=== PATIENT | male | born 1980 | race Asian ===

== ENCOUNTER 2022-11-04 18:49 | Emergency (ER) | payer OTHER, SELFPAY ==
[2022-11-04 19:02] VITALS: BP 119/79; PULSE 80; RESP 14; TEMP 36.7; O2SAT 100
--- NOTE | 2022-11-04 19:15 | DI.RAD_ITS ---
Exam(s) XR FINGER RT MIDDLE EXAM: XR FINGER RT MIDDLE CLINICAL HISTORY: trauma distal. TECHNIQUE: 2D digital imaging was performed. Three views. COMPARISON: No exams were available for comparison FINDINGS: BONES: Comminuted displaced fracture of the tuft of the distal phalanx of the middle finger. Overlyi ng soft tissue wound. No additional fractures. No bony destructive lesion is seen. JOINTS: No dislocation present. IMPRESSION: Comminuted tuft fracture. DATA REPOSITORY: RADIATION DOSE DELIVERED:
[2022-11-04] MEDS: Tetanus & Diphtheria Tox,ADULT 0.5 ML VIAL IM (19:44)
--- NOTE | 2022-11-04 20:17 | DI.VRAD_ITS ---
PROCEDURE INFORMATION: Exam: XR Right Finger(s) Exam date and time: 11/04/2022 7:33 PM Age: 42 years old Clinical indication: Pain; Finger(s); Right; Patient HX: Trauma to distal RT middle finger TECHNIQUE: Imaging protocol: Radiologic exam of the right fingers. Views: Minimum 2 views. COMPARISON: No relevant prior studies available. FINDINGS: Bones/joints: There is a fracture of the tip of the 3rd distal phalanx with a few small displaced fragments. No other fracture evident. Osseous alignment otherwise normal. No arthritic change. Soft tissues: Soft tissue injury of the distal 3rd finger noted. IMPRESSION: Fracture of the tip of the 3rd distal phalanx Dictated and Authenticated by: Franklyn Osborn MD. Ordering:GRETA Francis MD
--- NOTE | 2022-11-04 21:02 | W.ED.GENAD ---
Discharge Plan Disposition Patient Disposition: Home Discharge Details Clinical Impression: Open fracture of tuft of distal phalanx of finger Primary Care Provider: None,None ED Provider: Penny Slater Home Meds and New Rx's Prescriptions: New cephalexin 500 mg capsule 500 mg PO Q6H 7 Days Qty: 28 0RF cephalexin 500 mg capsule 500 mg PO Q6H 7 Days Qty: 28 0RF Discharge Instructions Instructions: Finger Fracture (ED) Additional Instructions: Keep your finger dry, do not submerge in water Take ibuprofen and Tylenol, ibuprofen 600 mg every 8 hours with food, Tylenol 650 every 4 hours Take the antibiotic as prescribed Yogurt daily while on the antibiotic, you have an open finger fracture, it is very important that you follow-up with orthopedics, they should call you tomorrow if you do not hear from them by the end of the day, I recommend calling to set up an appointment To develop fever, chills, worsening pain, please return to the emergency department The lidocaine will likely wear off an hour and a half so I would start taking some ibuprofen and Tylenol when you arrive home I supplied you with oxycodone, 4 tablets, you may take this every 8 hours as needed for pain, this is addictive and you should not drive for 8 hours after taking this medication such as use caution The dressing should be changed every 48 hours Referrals: Jeremy Kate MD [ [facility] STAFF PHYSICIAN] - Medical Decision Making 42-year-old gentleman presents with injury to right third digit just prior to arrival Large laceration, concern for tuft fracture, x-ray was ordered for further evaluation with distal tuft fracture appreciated, large area of tissue avulsed, nail pulled away from fold, Keflex initiated, nail was placed black in the fold and sutured in place, attempt made to cover area of avulsion with skin, will need close outpatient orthopedic follow-up Tetanus updated Small amount of oxycodone, risk of addiction reviewed Referral to orthopedics Return precautions reviewed and patient expressed understanding Medical Records Medical records reviewed: Yes I reviewed the patient's medical records. Lab Data Lab results reviewed: Yes I reviewed the patient's lab results. HPI General Date/Time Provider Initiated Documentation: 11/04/22 19:10. HPI Narrative: This otherwise healthy 42-year-old gentleman presents with report of injury to third digit, he states the weight, 75 pounds rolled over on his finger. He denies any additional injuries, unsure regarding his tetanus. This event occurred just prior to arrival. Related Data Home Medications Medication Instructions Recorded Confirmed cephalexin 500 mg capsule 500 mg PO Q6H 7 days #28 caps 11/04/22 cephalexin 500 mg capsule 500 mg PO Q6H 7 days #28 caps 11/04/22 Previous Rx's Medication Instructions Recorded cephalexin 500 mg capsule 500 mg PO Q6H 7 days #28 caps 11/04/22 cephalexin 500 mg capsule 500 mg PO Q6H 7 days #28 caps 11/04/22 General Stated Complaint: Laceration LEVAR: 4 PFSH All Active Problems (Updated 11/04/22 @ 20:42 by LORY Casillas) Open fracture of tuft of distal phalanx of finger (Acute) Social History Smoking/Tobacco Use Status: Never Smoking risk assessment performed?: Yes Alcohol Intake: never Drug use: Never Substance use type: does not use Do you feel safe at home: Yes Do you feel safe in your relationship?: Yes Course Vital Signs Vital signs: Vital Signs Temperature 36.7 C 11/04/22 19:02 Pulse 80 11/04/22 19:02 Respiratory Rate 14 11/04/22 19:02 Blood Pressure 119/79 11/04/22 19:02 Pulse Oximetry 100 11/04/22 19:02 Temperature 36.7 C 11/04/22 19:02 Temperature Source Skin 11/04/22 19:02 Pulse 80 11/04/22 19:02 Respiratory Rate 14 11/04/22 19:02 Respiratory Effort Normal, Non-Labored 11/04/22 19:46 Blood Pressure 119/79 11/04/22 19:02 Blood Pressure Position Sitting 11/04/22 19:02 Pulse Oximetry 100 11/04/22 19:02 Oxygen Delivery Method Room Air 11/04/22 19:02 Oxygen Flow Rate 0 11/04/22 19:02 Pain Level 2 11/04/22 19:02 Procedures Laceration Laceration 1: Site: hand Side (If applicable): right Size (cm): 2.5 Description: irregular and other (involves nail, nail placed back into nail fold and sutured with 2 interrupted 5-0 chromic ) Local Anesthetic: Lidocaine 1% Amount of anesthesia used (mL): 3 Skin layer closed with: other (prolene) Size (cm): 5-0 Number of sutures: 3 Technique: simple, interrupted
== END 2022-11-04 21:08 | disposition home or self-care (01) ==
PROVIDERS: Emergency Provider Physician Assistant
DX: S62.632B Displaced fracture of distal phalanx of right middle finger, initial encounter for open fracture (principal); X58.XXXA Exposure to other specified factors, initial encounter
CPT/HCPCS: 12001; 90471; 99284; 73140

== ENCOUNTER 2023-12-21 19:53 | Outpatient (CLI) | payer OTHER, SELFPAY ==
[2023-12-21 20:46] LABS: Hemoglobin A1C 5.7 % (<5.7)
[2023-12-21 20:48] LABS: Anion Gap 13.6 mmol/L (3-11); BUN 9 mg/dL (7-18); CO2 27.4 mmol/L (21.0-32.0); CREATININE 1.2 mg/dL (0.70-1.30); Calculated LDL 95 mg/dL (<100); Chloride 104 mmol/L (98-107); Cholesterol 196 mg/dL (<200); Estimated GFR 77.43 (mL/min/1.73m2); Glucose 96 mg/dL (74-106); HDL Cholesterol 40 mg/dL (40-60); Potassium 3.9 mmol/L (3.5-5.1); Sodium 145 mmol/L (136-145); Triglyceride 307 mg/dL (<150)
[2023-12-22 18:17] LABS: PSA, Screening 0.6 ng/mL (<=2.5)
== END 2023-12-21 19:54 | disposition home or self-care (01) ==
PROVIDERS: PCP Nurse Practitioner Family; Visit Provider Nurse Practitioner Family
DX: Z00.00 Encounter for general adult medical examination without abnormal findings (principal); Z80.42 Family history of malignant neoplasm of prostate; R79.89 Other specified abnormal findings of blood chemistry
CPT/HCPCS: 80048; 80061; 84153; 83036

== ENCOUNTER 2024-04-04 04:20 | Outpatient (CLI) | payer OTHER, SELFPAY ==
[2024-04-04 20:37] LABS: ALT 50 U/L (16-63); AST 23 U/L (15-37); Alkaline Phosphatase 95 U/L (46-116); Anion Gap 8.3 mmol/L (3-11); BUN 18 mg/dL (7-18); CO2 30.7 mmol/L (21.0-32.0); CREATININE 1.3 mg/dL (0.70-1.30); Calcium 9.1 mg/dL (8.5-10.1); Chloride 103 mmol/L (98-107); Estimated GFR 70.34 (mL/min/1.73m2); Glucose 93 mg/dL (74-106); Potassium 4.6 mmol/L (3.5-5.1); Sodium 142 mmol/L (136-145); Total Protein 7.3 g/dL (6.4-8.2)
[2024-04-10 09:59] LABS: Apolipoprotein B, Serum 99 mg/dL; Beta VLDL Cholesterol Not Detected mg/dL (<15); Beta VLDL Triglycerides Not Detected mg/dL (<15); Cholesterol, Total, CDC 199 mg/dL; Chylomicron Cholesterol Not Detected; Chylomicron Triglycerides Not Detected; HDL Cholesterol, CDC 38 mg/dL (>=40); LDL Cholesterol 129 mg/dL; LDL Triglycerides 77 mg/dL (<=50); Lp(a) Cholesterol <5 mg/dL (<5); LpX Not detected; Triglycerides, CDC 224 mg/dL; VLDL Cholesterol 32 mg/dL (<30); VLDL Triglycerides 122 mg/dL (<120)
== END 2024-04-04 04:21 | disposition home or self-care (01) ==
LOC: LBO 04:20
PROVIDERS: PCP Nurse Practitioner Family; Visit Provider Nurse Practitioner Family
DX: E78.1 Pure hyperglyceridemia (principal)
CPT/HCPCS: 80053; 80061; 82172; 82664

== ENCOUNTER 2024-08-09 20:23 | Outpatient (REF) | payer OTHER, SELFPAY ==
[2024-08-13 17:49] LABS: Apolipoprotein B, Serum 100 mg/dL; Beta VLDL Cholesterol Not Detected mg/dL (<15); Beta VLDL Triglycerides Not Detected mg/dL (<15); Cholesterol, Total, CDC 200 mg/dL; Chylomicron Cholesterol 1 mg/dL; Chylomicron Triglycerides 20 mg/dL; HDL Cholesterol, CDC 37 mg/dL (>=40); LDL Cholesterol 122 mg/dL; LDL Triglycerides 56 mg/dL (<=50); Lp(a) Cholesterol <5 mg/dL (<5); LpX Not detected; Triglycerides, CDC 241 mg/dL; VLDL Cholesterol 40 mg/dL (<30); VLDL Triglycerides 141 mg/dL (<120)
== END 2024-08-09 20:24 | disposition home or self-care (01) ==
LOC: NCHCN 20:23
PROVIDERS: PCP Nurse Practitioner Family; Visit Provider Nurse Practitioner Family
DX: E78.1 Pure hyperglyceridemia (principal)
CPT/HCPCS: 80061; 82172; 82664